=== PATIENT | male | born 1980 | race Caucasian/White ===

== ENCOUNTER 2020-02-27 13:03 | Emergency (ER) | payer OTHER, SELFPAY ==
[2020-02-27 13:11] VITALS: BP 114/66; PULSE 71; RESP 16; TEMP 36.8; O2SAT 99
--- NOTE | 2020-02-27 13:25 | ED.DENTAL ---
HPI - Dental/Oral General Chief complaint: Dental/Oral Stated complaint: tooth pain Time Seen by Provider: 02/27/20 13:25 Source: patient and RN notes reviewed Mode of arrival: ambulatory Limitations: no limitations History of Present Illness HPI Narrative: 39 year old male who presents with tooth ache for the past 2 days with swelling to gums around the #5,#6 and #7 teeth on upper right dental quadrant and swelling to the right side of his face. Patient states that he has taken Ibuprofen for his pain with no relief, has not applied any ice to his face. Patient has broken teeth to his right upper dental quadrant #5-7 with redness and swelling of gums with swelling to right facial region. 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 which patient states usually relieves his chronic back problem but that it is not touching the acute dental pain.Patient denies any difficulty with swallowing or with his breathing, Complaint: tooth pain Location: Tooth # (5-7) Onset (ago): day(s) (2) Duration: constant Severity: severe Severity scale (1-10): >10 Relieving factors: nothing Exacerbating factors: chewing and cold Context: history of dental caries and poor dental care Associated symptoms: gum swelling and other (right facial swelling) Treatment prior to arrival: oral analgesic Related Data Home Medications Medication Instructions Recorded Confirmed clonazepam 0.5 mg PO DAILY 02/27/20 02/27/20 clonazepam 1 mg PO DAILY 02/27/20 02/27/20 duloxetine [Cymbalta] 60 mg PO DAILY 02/27/20 02/27/20 methadone 170 mg DAILY 02/27/20 02/27/20 Allergies Allergy/AdvReac Type Severity Reaction Status Date / Time No Known Allergies Allergy Mild Verified 02/27/20 13:32 Review of Systems Review of Systems: Narrative: CONSTITUTIONAL: Denies fever, chills, or sweats. EYES: Denies visual changes, redness, or discharge. ENT: Denies rhinorrhea, congestion, sore throat, or otalgia.Positive for dental pain right upper teeth #5-7 with gums red and swollen and facial swelling right side of face. CARDIOVASCULAR: Denies chest pain, palpitations, or edema. RESPIRATORY: Denies cough or dyspnea. GASTROINTESTINAL: Denies abdominal pain, nausea, vomiting, or diarrhea. GENITOURINARY: Denies dysuria or hematuria. SKIN: Denies rash or itching. MUSCULOSKELETAL: Denies back pain, joint pain, or myalgia. NEUROLOGIC: Denies headache, numbness, or weakness. PSYCHIATRIC: Positive history of anxiety or depression. All systems reviewed & are unremarkable except as noted in HPI and below PMFSH Past Medical History Medical History (Updated 02/27/20 @ 14:30 by Ronda Khan NP) Anxiety Chronic back pain Surgical History Surgical History (Updated 02/27/20 @ 14:31 by Ronda Khan NP) No significant past surgical history Social History Social History (Updated 02/27/20 @ 13:46 by Ronda Khan NP) Smoking packs per day: 1 Smoking cigarettes per day: 20.0 Years smoked: 24 Smoking pack-years: 24.00 Smoking status: Current every day smoker Tobacco type: cigarettes Smoking end date: 06/22/11 Alcohol intake: never Substance use: former Substance use type: painkillers and prescription drug Living arrangements: with family Gender identity (if verbalized by the patient): Male Comments At time of signature, agree with nursing past medical, surgical, social history. There is no relevant family history pertinent to the presenting complaint Exam Narrative: Exam Narrative: GENERAL: Well-appearing, well-nourished, and in no acute distress. HEAD: Normocephalic, atraumatic. EYES: PERRLA and EOMI. ENT: Nares clear, no rhinorrhea or epistaxis. Mucous membranes moist.TM's normal with good light reflex,throat pink with o lesions or exudate, no Billy angina. Swollen gums #5-7 with redness and also swelling of right side of face NECK: Supple, no lymphadenopathy CHEST: Clear to aus
== END 2020-02-27 13:58 | disposition home or self-care (01) ==
PROVIDERS: Emergency Provider Registered Nurse
DX: K04.7 Periapical abscess without sinus (principal); K08.89 Other specified disorders of teeth and supporting structures; F17.210 Nicotine dependence, cigarettes, uncomplicated; F41.9 Anxiety disorder, unspecified
CPT/HCPCS: 99203; G0463